=== PATIENT | female | born 1980 | race American Indian/Alaskan Native ===

== ENCOUNTER 2018-04-28 01:13 | Emergency (ER) | payer SELFPAY ==
[2018-04-28 01:51] LABS: Basophils % (Auto) 0.7 % (0.0-1.8); Eosinophils # (Auto) 0.2 K/mm3 (0.0-0.4); Eosinophils % (Auto) 4.5 % (0.0-4.3); Hematocrit 34.2 % (30.3-42.9); Lymphocytes # (Auto) 2.7 K/mm3 (1.2-5.4); Lymphocytes % (Auto) 51.4 % (13.4-35.0); Mean Corpuscular HGB Conc 32 % (30-34); Mean Corpuscular Volume 73 fl (79-97); Monocytes # (Auto) 0.3 K/mm3 (0.0-0.8); Monocytes % (Auto) 5.8 % (0.0-7.3); Platelet Count 247 K/mm3 (140-440); Red Blood Count 4.71 M/mm3 (3.65-5.03); Red Cell Distribution Width 16.1 % (13.2-15.2)
[2018-04-28 02:10] LABS: Alanine Aminotransferase 9 units/L (7-56); Albumin 4.2 g/dL (3.9-5); BUN/Creatinine Ratio 20; Blood Urea Nitrogen 12 mg/dL (7-17); Calcium 8.8 mg/dL (8.4-10.2); Hemolysis Index 7
--- NOTE | 2018-04-28 08:01 | Emergency Department Report ---
ED Abdominal Pain HPI - General Chief Complaint: Abdominal Pain Stated Complaint: N/V, ABD PAIN Time Seen by Provider: 04/28/18 08:00 Source: patient Mode of arrival: Ambulatory Limitations: No Limitations - History of Present Illness Initial Comments: 37-year-old female provides a history of umbilical hernia. She complains of upper and lower back pain. She has not been vomiting. She denies fever or chills. She was seen here on Monday and discharged for similar complaints. She did not have a urinalysis at that time. She did not have a reticulocyte count at that time. She tells me that she has sickle cell disease but does not have frequent crisis. She also states she is uninsured and has moved here from [place]. In any case she reports intermittent abdominal crampy discomfort. MD Complaint: abdominal pain -: week(s) Location: diffuse Radiation: none Migration to: other (first upper abdominal and then lower abdominal) Severity: mild Quality: cramping Consistency: intermittent Improves With: nothing Worsens With: nothing Associated Symptoms: denies other symptoms - Related Data Previous Rx's Medication Instructions Recorded Last Taken Type Ibuprofen [Motrin] 800 mg PO Q8HR PRN #30 tablet 04/24/18 Unknown Rx Meclizine [Antivert] 25 mg PO TID PRN #30 tablet 04/24/18 Unknown Rx Ondansetron [Zofran Odt] 4 mg PO Q8HR PRN #20 tab.rapdis 04/24/18 Unknown Rx traMADol [Ultram 50 MG tab] 50 mg PO Q6HR PRN #14 tablet 04/28/18 Unknown Rx Allergies Allergy/AdvReac Type Severity Reaction Status Date / Time Sulfa (Sulfonamide AdvReac Swelling Verified 04/24/18 01:11 Antibiotics) ED Review of Systems ROS: Stated complaint: N/V, ABD PAIN Other details as noted in HPI Constitutional: denies: chills, fever Eyes: denies: eye pain, eye discharge, vision change ENT: denies: ear pain, throat pain Respiratory: denies: cough, shortness of breath, wheezing Cardiovascular: denies: chest pain, palpitations Endocrine: no symptoms reported Gastrointestinal: as per HPI, abdominal pain. denies: nausea, diarrhea Genitourinary: denies: urgency, dysuria, discharge Musculoskeletal: denies: back pain, joint swelling, arthralgia Skin: denies: rash, lesions Neurological: denies: headache, weakness, paresthesias Psychiatric: denies: anxiety, depression Hematological/Lymphatic: denies: easy bleeding, easy bruising ED Past Medical Hx - Past Medical History Previous Medical History?: Yes Hx Sickle Cell Disease: Yes Hx Arthritis: Yes (All joints) Additional medical history: Chronic Back Pain, - Surgical History Past Surgical History?: Yes Additional Surgical History: Tonsillectomy, Adenoidectomy, - Social History Smoking Status: Current Every Day Smoker Substance Use Type: None - Medications Home Medications: Home Medications Medication Instructions Recorded Confirmed Last Taken Type Ibuprofen [Motrin] 800 mg PO Q8HR PRN #30 tablet 04/24/18 Unknown Rx Meclizine [Antivert] 25 mg PO TID PRN #30 tablet 04/24/18 Unknown Rx Ondansetron [Zofran Odt] 4 mg PO Q8HR PRN #20 tab.rapdis 04/24/18 Unknown Rx traMADol [Ultram 50 MG tab] 50 mg PO Q6HR PRN #14 tablet 04/28/18 Unknown Rx ED Physical Exam - General Limitations: No Limitations General appearance: alert, in no apparent distress - Head Head exam: Present: atraumatic, normocephalic - Eye Eye exam: Present: normal appearance. Absent: scleral icterus - ENT ENT exam: Present: mucous membranes moist - Neck Neck exam: Present: normal inspection - Respiratory Respiratory exam: Present: normal lung sounds bilaterally. Absent: respiratory distress - Cardiovascular Cardiovascular Exam: Present: regular rate, normal rhythm. Absent: systolic murmur, diastolic murmur, rubs, gallop - GI/Abdominal GI/Abdominal exam: Present: soft, normal bowel sounds, hernia (reducible and nontender). Absent: distended (obese), tenderness (no tenderness specifically in the periumbilical area or elsewhere.), guarding, rebound, rigid, organomegaly, mass, bruit, pulsatile mass - Extremities Exam Extremities exam: Present: normal inspection - Back Exam Back exam: Present: normal inspection - Neurological Exam Neurological exam: Present: alert, oriented X3, CN II-XII intact. Absent: motor sensory deficit - Psychiatric Psychiatric exam: Present: normal affect, normal mood - Skin Skin exam: Present: warm, dry, intact, normal color. Absent: rash ED Course Vital Signs 04/28/18 04/28/18 01:21 09:11 Temperature 98.1 F Pulse Rate 95 H 82 Respiratory 18 16 Rate Blood Pressure 140/81 Blood Pressure 130/82 [Left] O2 Sat by Pulse 100 98 Oximetry - Reevaluation(s) Reevaluation #1: On reexamination the patient's abdomen was totally nontender. She was asleep. She was resting comfortably and asymptomatic when awoken. She is appropriate for outpatient management. She will be referred to her primary care clinic and a surgeon. There is no indication of a strangulated hernia here. I have reviewed the CT report. 04/28/18 10:56 ED Medical Decision Making - Lab Data Result diagrams: 04/28/18 01:29 04/28/18 01:29 Laboratory Results - last 24 hr 04/28/18 04/28/18 01:29 01:29 WBC 5.2 RBC 4.71 Hgb 11.0 Hct 34.2 MCV 73 L MCH 23 L MCHC 32 RDW 16.1 H Plt Count 247 Lymph % (Auto) 51.4 H Falls % (Auto) 5.8 Eos % (Auto) 4.5 H Baso % (Auto) 0.7 Lymph # 2.7 Falls # 0.3 Eos # 0.2 Baso # 0.0 Seg Neutrophils % 37.6 L Seg Neutrophils # 2.0 Sodium 139 Potassium 3.8 Chloride 104.1 Carbon Dioxide 23 Anion Gap 16 BUN 12 Creatinine 0.6 L Estimated GFR > 60 BUN/Creatinine Ratio 20 Glucose 99 Calcium 8.8 Total Bilirubin 0.20 AST 11 ALT 9 Alkaline Phosphatase 50 Total Protein 6.1 L Albumin 4.2 Albumin/Globulin Ratio 2.2 - Radiology Data Radiology results: report reviewed Critical care attestation.: If time is entered above; I have spent that time in minutes in the direct care of this critically ill patient, excluding procedure time. ED Disposition Clinical Impression: Periumbilical hernia Abdominal pain Qualifiers: Abdominal location: generalized Qualified Code(s): R10.84 - Generalized abdominal pain Disposition: TO HOME OR SELFCARE Is pt being admited?: No Does the pt Need Aspirin: No Condition: Stable Instructions: Abdominal Pain (ED), Umbilical Hernia (ED) Additional Instructions: Return to the emergency department any acute change or worsening abdominal pain. Return if any fever or chills or difficulty with bowel movements. Follow-up with referrals. Rx if needed for pain. Prescriptions: traMADol [Ultram 50 MG tab] 50 mg PO Q6HR PRN #14 tablet PRN Reason: Pain Referrals: PRIMARY CAREMD [Primary Care Provider] - 3-5 Days CASANDRA KNOTT MD [Staff Physician] - 3-5 Days [facility] [Provider Group] - 2-3 Days Time of Disposition: 10:57
[2018-04-28] MEDS ORDERED: NACL 0.9% 1000 ML 1,000 ML IV ONE (08:25)
[2018-04-28] MEDS ORDERED: TORADOL IV ONE (08:26)
[2018-04-28] MEDS ORDERED: ZOFRAN IV ONE (08:26)
[2018-04-28 08:32] LABS: Bilirubin,Urine NEG (Negative); Blood,Urine NEG (Negative); Color,Urine Yellow (Yellow); HCG Qualitative,Urine Negative (Negative); Mucus,Urine FEW /HPF; Protein,Urine <15 mg/dL mg/dL (Negative); Urobilinogen,Urine < 2.0 mg/dL (<2.0)
[2018-04-28 09:12] VITALS: BP 130/82
--- NOTE | 2018-04-28 09:15 | Cat Scan Report ---
FINAL REPORT EXAM: CT ABDOMEN PELVIS WO CON HISTORY: abd pain generalized SS disease TECHNIQUE: CT of the abdomen and pelvis without IV contrast. Coronal and sagittal reconstructed imag ing provided. PRIORS: None currently available. FINDINGS: ABDOMEN: Partially imaged heart is within normal limits. No pericardial effusion. Some coronary artery disease . Calcified lymph nodes in the mediastinum and right hilar region are partially imaged. Calcified granuloma in the right lower lobe. Distended gallbladder. No wall thickening. Common bile duct does not appear prominent on CT. Liver: 21.6 cm. No distinct lesions. Stomach, spleen, pancreas, and adrenals are unremarkable. Kidneys: 7.2 x 4.1 mm stone upper right kidney. No hydronephrosis. No ureteral stones. Left kidney do es not demonstrate any nephroureteral stones. No hydronephrosis. IVC is unremarkable. No abdominal aortic aneurysm. No periaortic or retroperitoneal mass or adenopathy. Btfz-fj-yohpeypn stool in the colon. No wall thickening or inflammatory changes. Terminal ileum is unremarkable. Appendix is normal. Small bowel loops are unremarkable. No obstructive pattern. No air-fluid levels. Mesentery is unremarkable. No free air. No free fluid. Two small fat containing umbilical hernias. 5.1 cm fat containing supra umbilical hernia with a neck of 1.9 cm demonstrates some minimal stranding. PELVIS: Limited CT images of the uterus are unremarkable. Oval low-attenuation lesion in the right posterior pelvis measures 2.6 cm and probably represents a r ight ovary with ovarian cyst. Bladder: No wall thickening. No stones. Unremarkable. No pelvic mass or adenopathy. Inguinal regions are unremarkable. Bones: No suspicious osseous lesions on this limited examination of the skeleton. Metastatic disease better evaluated with bone scan. IMPRESSION: Distended gallbladder. No CT evidence for cholecystitis. Hepatomegaly. Right renal stone. No hydronephrosis. Umbilical and supraumbilical fat containing hernias. Mild stranding in the supraumbilical hernia. Str angulation is not entirely excluded. Please correlate for localized tenderness. Probable right ovary with ovarian cyst.
== END 2018-04-28 11:16 | disposition home or self-care (01) ==
LOC: ED 01:13
DX: K42.9 Umbilical hernia without obstruction or gangrene (principal); F17.200 Nicotine dependence, unspecified, uncomplicated; M19.90 Unspecified osteoarthritis, unspecified site; G89.29 Other chronic pain; D57.80 Other sickle-cell disorders without crisis; Z88.2 Allergy status to sulfonamides; Z90.89 Acquired absence of other organs
CPT/HCPCS: 36415; 74176; 80053; 81001; 81025; 85025; 85045; 96374; 96375; 99284; J1885; J2405; J7030

== ENCOUNTER 2018-07-10 14:12 | Emergency (ER) | payer OTHER ==
--- NOTE | 2018-07-10 14:43 | Emergency Department Report ---
Chief Complaint: Nausea/Vomiting/Diarrhea Stated Complaint: ABD PAIN/LOOSE STOOLS/FATIGUE Time Seen by Provider: 07/10/18 14:41 - HPI History of Present Illness: This is a 37 y.o. female that presents with abdominal pain and diarrhea x 3 days. - ROS Review of Systems: abdominal pain and diarrhea. - Exam Vital Signs: Vital Signs 07/10/18 14:41 Temperature 97.9 F Pulse Rate 96 H Respiratory 20 Rate Blood Pressure 156/102 O2 Sat by Pulse 100 Oximetry MSE screening note: Focused history and physical exam performed. Due to findings the following was ordered: Labs Fast track for further evaluation. ED Disposition for MSE Condition: Stable
[2018-07-10 15:31] LABS: Hematocrit 31.8 % (30.3-42.9); Hemoglobin 10.3 gm/dl (10.1-14.3); Mean Corpuscular HGB Conc 32 % (30-34); Mean Corpuscular Volume 72 fl (79-97); Platelet Count 333 K/mm3 (140-440); Red Blood Count 4.44 M/mm3 (3.65-5.03); Red Cell Distribution Width 15.1 % (13.2-15.2)
[2018-07-10] MEDS ORDERED: PEPCID IV ONE (15:47)
[2018-07-10] MEDS ORDERED: NACL 0.9% 1000 ML 1,000 ML IV ONE (15:47)
[2018-07-10] MEDS ORDERED: BENTYL IM ONE (15:47)
[2018-07-10 16:04] LABS: Alanine Aminotransferase 10 units/L (7-56); Albumin 4.2 g/dL (3.9-5); BUN/Creatinine Ratio 14; Blood Urea Nitrogen 10 mg/dL (7-17); Calcium 8.9 mg/dL (8.4-10.2); Hemolysis Index 7
[2018-07-10 16:12] LABS: Basophils % (Manual) 0 % (0.0-1.8); Total Cells Counted 100
[2018-07-10 16:13] LABS: Anisocytosis 1+; Hypochromasia 1+; Schistocytes Few
[2018-07-10 16:14] LABS: Ovalocytes 1+; Target Cells 1+; Tear Drop Cells Few
--- NOTE | 2018-07-10 16:27 | Emergency Department Report ---
<LUIS FELIPE MARIN - Last Filed: 07/10/18 16:20> ED Abdominal Pain HPI - General Chief Complaint: Nausea/Vomiting/Diarrhea Stated Complaint: ABD PAIN/LOOSE STOOLS/FATIGUE Time Seen by Provider: 07/10/18 14:41 Source: patient Mode of arrival: Ambulatory Limitations: No Limitations - History of Present Illness Initial Comments: Patient is a 37-year-old Female who is presenting with 3 days of epigastric discomfort with diarrhea. Patient states abdominal discomfort is crampy in nature. Patient states that she's had loose watery diarrhea that at some times uncontrollable. Patient struck taken Imodium [id number] with no relief. Patient leave work yesterday because on her way to work she had a bowel movement on herself and had to call out. The patient has some mild nausea but no diarrhea. Patient denies objective fevers however she has had intermittent chills for the past 2-3 days as well. Patient does have some mild dizziness with standing and fatigue. Severity scale (0 -10): 6 - Related Data Previous Rx's Medication Instructions Recorded Last Taken Type Ibuprofen [Motrin] 800 mg PO Q8HR PRN #30 tablet 04/24/18 Unknown Rx Meclizine [Antivert] 25 mg PO TID PRN #30 tablet 04/24/18 Unknown Rx Ondansetron [Zofran Odt] 4 mg PO Q8HR PRN #20 tab.rapdis 04/24/18 Unknown Rx traMADol [Ultram 50 MG tab] 50 mg PO Q6HR PRN #14 tablet 04/28/18 Unknown Rx Cyclobenzaprine [Flexeril] 10 mg PO TID PRN #30 tablet 05/19/18 Unknown Rx Menthol/Camphor [[place]offat 1 applicatio TP QID PRN #1 tube 05/19/18 Unknown Rx Ointment] Naproxen 500 mg PO BID PRN #30 tablet 05/19/18 Unknown Rx Nitrofurantoin [place]/M-Cryst 100 mg PO BID 7 Days #14 capsule 05/19/18 Unknown Rx [Macrobid CAP] Ondansetron [Zofran Odt] 4 mg PO Q8HR PRN #10 tab.rapdis 07/10/18 Unknown Rx Allergies Allergy/AdvReac Type Severity Reaction Status Date / Time Sulfa (Sulfonamide AdvReac Swelling Verified 04/24/18 01:11 Antibiotics) ED Review of Systems Comment: All other systems reviewed and negative ED Past Medical Hx - Past Medical History Previous Medical History?: Yes Hx Sickle Cell Disease: Yes Hx Arthritis: Yes (All joints) Additional medical history: Chronic Back Pain, - Surgical History Past Surgical History?: Yes Additional Surgical History: Tonsillectomy, Adenoidectomy, Hernia Repair - Social History Smoking Status: Current Every Day Smoker Substance Use Type: None - Medications Home Medications: Home Medications Medication Instructions Recorded Confirmed Last Taken Type Ibuprofen [Motrin] 800 mg PO Q8HR PRN #30 tablet 04/24/18 Unknown Rx Meclizine [Antivert] 25 mg PO TID PRN #30 tablet 04/24/18 Unknown Rx Ondansetron [Zofran Odt] 4 mg PO Q8HR PRN #20 tab.rapdis 04/24/18 Unknown Rx traMADol [Ultram 50 MG tab] 50 mg PO Q6HR PRN #14 tablet 04/28/18 Unknown Rx Cyclobenzaprine [Flexeril] 10 mg PO TID PRN #30 tablet 05/19/18 Unknown Rx Menthol/Camphor [[place] Moffat 1 applicatio TP QID PRN #1 tube 05/19/18 Unknown Rx Ointment] Naproxen 500 mg PO BID PRN #30 tablet 05/19/18 Unknown Rx Nitrofurantoin [place]/M-Cryst 100 mg PO BID 7 Days #14 capsule 05/19/18 Unknown Rx [Macrobid CAP] Ondansetron [Zofran Odt] 4 mg PO Q8HR PRN #10 tab.rapdis 07/10/18 Unknown Rx ED Physical Exam - General Limitations: No Limitations General appearance: alert, in no apparent distress - Head Head exam: Present: atraumatic, normocephalic - Eye Eye exam: Present: normal appearance - ENT ENT exam: Present: mucous membranes moist - Neck Neck exam: Present: normal inspection - Respiratory Respiratory exam: Present: normal lung sounds bilaterally. Absent: respiratory distress, wheezes, rales, rhonchi - Cardiovascular Cardiovascular Exam: Present: regular rate, normal rhythm. Absent: systolic murmur, diastolic murmur, rubs, gallop - GI/Abdominal GI/Abdominal exam: Present: soft, tenderness (epigastric and mid abd), normal bowel sounds. Absent: distended, guarding, rebound, rigid - Extremities Exam Extremities exam: Present: normal inspection - Back Exam Back exam: Present: normal inspection - Neurological Exam Neurological exam: Present: alert, oriented X3 - Psychiatric Psychiatric exam: Present: normal affect, normal mood - Skin Skin exam: Present: warm, dry, intact, normal color. Absent: rash ED Medical Decision Making - Lab Data Result diagrams: 07/10/18 15:03 07/10/18 15:03 Lab Results 07/10/18 07/10/18 07/10/18 Range/Units 15:03 15:03 15:03 WBC 5.1 (4.5-11.0) K/mm3 RBC 4.44 (3.65-5.03) M/mm3 Hgb 10.3 (10.1-14.3) gm/dl Hct 31.8 (30.3-42.9) % MCV 72 L (79-97) fl MCH 23 L (28-32) pg MCHC 32 (30-34) % RDW 15.1 (13.2-15.2) % Plt Count 333 (140-440) K/mm3 Add Manual Diff Complete Total Counted 100 Seg Neuts % (Manual) 49.0 (40.0-70.0) % Band Neutrophils % 0 % Lymphocytes % (Manual) 38.0 H (13.4-35.0) % Reactive Lymphs % (Man) 0 % Monocytes % (Manual) 7.0 (0.0-7.3) % Eosinophils % (Manual) 6.0 H (0.0-4.3) % Basophils % (Manual) 0 (0.0-1.8) % Metamyelocytes % 0 % Myelocytes % 0 % Promyelocytes % 0 % Blast Cells % 0 % Nucleated RBC % Not Reportable Seg Neutrophils # Man 2.5 (1.8-7.7) K/mm3 Band Neutrophils # 0.0 K/mm3 Lymphocytes # (Manual) 1.9 (1.2-5.4) K/mm3 Abs React Lymphs (Man) 0.0 K/mm3 Monocytes # (Manual) 0.4 (0.0-0.8) K/mm3 Eosinophils # (Manual) 0.3 (0.0-0.4) K/mm3 Basophils # (Manual) 0.0 (0.0-0.1) K/mm3 Metamyelocytes # 0.0 K/mm3 Myelocytes # 0.0 K/mm3 Promyelocytes # 0.0 K/mm3 Blast Cells # 0.0 K/mm3 WBC Morphology Not Reportable Hypersegmented Neuts Not Reportable Hyposegmented Neuts Not Reportable Hypogranular Neuts Not Reportable Smudge Cells Not Reportable Toxic Granulation Not Reportable Toxic Vacuolation Not Reportable Dohle Bodies Not Reportable Pelger-Huet Anomaly Not Reportable Kyra Rods Not Reportable Platelet Estimate Appears normal Clumped Platelets Not Reportable Plt Clumps, EDTA Not Reportable Large Platelets Not Reportable Giant Platelets Not Reportable Platelet Satelliting Not Reportable Plt Morphology Comment Not Reportable RBC Morphology Not Reportable Dimorphic RBCs Not Reportable Polychromasia Not Reportable Hypochromasia 1+ Poikilocytosis Not Reportable Anisocytosis 1+ Microcytosis Not Reportable Macrocytosis Not Reportable Spherocytes Not Reportable Pappenheimer Bodies Not Reportable Sickle Cells Not Reportable Target Cells 1+ Tear Drop Cells Few Ovalocytes 1+ Helmet Cells Not Reportable Mccarthy-Marmarth Bodies Not Reportable Lilly Rings Not Reportable Lisa Cells Not Reportable Bite Cells Not Reportable Crenated Cell Not Reportable Elliptocytes Few Acanthocytes (Spur) Not Reportable Rouleaux Not Reportable Hemoglobin C Crystals Not Reportable Schistocytes Few Malaria parasites Not Reportable Pablito Bodies Not Reportable Hem Pathologist Commnt No Sodium 140 (137-145) mmol/L Potassium 4.0 (3.6-5.0) mmol/L Chloride 103.3 (98-107) mmol/L Carbon Dioxide 25 (22-30) mmol/L Anion Gap 16 mmol/L BUN 10 (7-17) mg/dL Creatinine 0.7 (0.7-1.2) mg/dL Estimated GFR > 60 ml/min BUN/Creatinine Ratio 14 % Glucose 105 H (65-100) mg/dL Calcium 8.9 (8.4-10.2) mg/dL Total Bilirubin 0.20 (0.1-1.2) mg/dL AST 15 (5-40) units/L ALT 10 (7-56) units/L Alkaline Phosphatase 65 (35-129) units/L Total Protein 7.1 (6.3-8.2) g/dL Albumin 4.2 (3.9-5) g/dL Albumin/Globulin Ratio 1.4 % HCG, Qual Negative (Negative) ED Disposition Clinical Impression: Gastroenteritis Disposition: DC-01 TO HOME OR SELFCARE Condition: Stable Instructions: Gastroenteritis (ED) Additional Instructions: rest hydrate well with water advance diet as tolerated--start with bland foods motrin or tylenol for pain zofran for nausea follow up with pcp within 48 hours for recheck and to be sure you are doing better. this is 4rth ER visit this year- the PCP can follow you over time and be sure you are improving Prescriptions: Ondansetron [Zofran Odt] 4 mg PO Q8HR PRN #10 tab.rapdis PRN Reason: Vomiting Referrals: [facility] MD SAM [Primary Care Provider] - 3-5 Days [facility] [Outside] - 3-5 Days Forms: Work/School Release Form(ED) <LIZZIE ESPINOSA A - Last Filed: 07/10/18 18:47> ED Review of Systems ROS: Stated complaint: ABD PAIN/LOOSE STOOLS/FATIGUE Other details as noted in HPI ED Course Vital Signs 07/10/18 14:41 Temperature 97.9 F Pulse Rate 96 H Respiratory 20 Rate Blood Pressure 156/102 O2 Sat by Pulse 100 Oximetry ED Medical Decision Making - Lab Data Result diagrams: 07/10/18 15:03 07/10/18 15:03 - Radiology Data Radiology results: report reviewed no acute process see report - Medical Decision Making pt dc home VSS no n/v/d in ER on dc Labs 07/10/18 07/10/18 07/10/18 15:03 15:03 15:03 WBC 5.1 RBC 4.44 Hgb 10.3 Hct 31.8 MCV 72 L MCH 23 L MCHC 32 RDW 15.1 Plt Count 333 Add Manual Diff Complete Total Counted 100 Seg Neuts % (Manual) 49.0 Band Neutrophils % 0 Lymphocytes % (Manual) 38.0 H Reactive Lymphs % (Man) 0 Monocytes % (Manual) 7.0 Eosinophils % (Manual) 6.0 H Basophils % (Manual) 0 Metamyelocytes % 0 Myelocytes % 0 Promyelocytes % 0 Blast Cells % 0 Nucleated RBC % Not Reportable Seg Neutrophils # Man 2.5 Band Neutrophils # 0.0 Lymphocytes # (Manual) 1.9 Abs React Lymphs (Man) 0.0 Monocytes # (Manual) 0.4 Eosinophils # (Manual) 0.3 Basophils # (Manual) 0.0 Metamyelocytes # 0.0 Myelocytes # 0.0 Promyelocytes # 0.0 Blast Cells # 0.0 WBC Morphology Not Reportable Hypersegmented Neuts Not Reportable Hyposegmented Neuts Not Reportable Hypogranular Neuts Not Reportable Smudge Cells Not Reportable Toxic Granulation Not Reportable Toxic Vacuolation Not Reportable Dohle Bodies Not Reportable Pelger-Huet Anomaly Not Reportable Kyra Rods Not Reportable Platelet Estimate Appears normal Clumped Platelets Not Reportable Plt Clumps, EDTA Not Reportable Large Platelets Not Reportable Giant Platelets Not Reportable Platelet Satelliting Not Reportable Plt Morphology Comment Not Reportable RBC Morphology Not Reportable Dimorphic RBCs Not Reportable Polychromasia Not Reportable Hypochromasia 1+ Poikilocytosis Not Reportable Anisocytosis 1+ Microcytosis Not Reportable Macrocytosis Not Reportable Spherocytes Not Reportable Pappenheimer Bodies Not Reportable Sickle Cells Not Reportable Target Cells 1+ Tear Drop Cells Few Ovalocytes 1+ Helmet Cells Not Reportable Mcacrthy-Marmarth Bodies Not Reportable Lilly Rings Not Reportable [place] Cells Not Reportable Bite Cells Not Reportable Crenated Cell Not Reportable Elliptocytes Few Acanthocytes (Spur) Not Reportable Rouleaux Not Reportable Hemoglobin C Crystals Not Reportable Schistocytes Few Malaria parasites Not Reportable Pablito Bodies Not Reportable Hem Pathologist Commnt No Sodium 140 Potassium 4.0 Chloride 103.3 Carbon Dioxide 25 Anion Gap 16 BUN 10 Creatinine 0.7 Estimated GFR > 60 BUN/Creatinine Ratio 14 Glucose 105 H Calcium 8.9 Total Bilirubin 0.20 AST 15 ALT 10 Alkaline Phosphatase 65 Total Protein 7.1 Albumin 4.2 Albumin/Globulin Ratio 1.4 HCG, Qual Negative Vital Signs 07/10/18 14:41 Temperature 97.9 F Pulse Rate 96 H Respiratory 20 Rate Blood Pressure 156/102 O2 Sat by Pulse 100 Oximetry Critical care attestation.: If time is entered above; I have spent that time in minutes in the direct care of this critically ill patient, excluding procedure time. ED Disposition Is pt being admited?: No Does the pt Need Aspirin: No Time of Disposition: 18:42
--- NOTE | 2018-07-10 18:37 | Cat Scan Report ---
PROCEDURE: CT ABDOMEN PELVIS WO CON TECHNIQUE: Computerized axial tomography of the abdomen and pelvis was performed without intravenous contrast. This study is performed without intravascular contrast material and its sensitivity for ab dominal and pelvic pathology, including neoplasms, inflammation, abscess, free fluid, thrombosis, art erial dissection and infarction, is reduced compared with a contrast enhanced study. HISTORY: abd pain with large amt of diarrhea COMPARISONS: CT scan abdomen and pelvis 04/28/2018 . FINDINGS: Lower Lung tinajero: Several calcified lymph nodes project over the right hilum consistent with prior granulomatous disease. Calcified granuloma seen anteriorly in the right lower lobe. Upper Abdomen: The unenhanced images of the liver, the gallbladder, the adrenal glands, the pancreas are unremarkable. A few calcified granulomas are seen in the spleen which is otherwise unremarkable. Kidneys, Ureters and Urinary bladder: Nonobstructing 8 mm x 4 mm calculus visualized in the upper th ird of the right kidney. No other renal calculi are seen in the right or left. There is no hydronephr osis or renal mass. The ureters and urinary bladder show no focal abnormality Retroperitoneum: Abdominal aorta appears normal. Nonspecific subcentimeter lymph nodes are seen in the retroperitoneum. No pathologically enlarged ly mph nodes are identified. Bowel: No focal bowel loop abnormalities are seen. No evidence of bowel obstruction ascites or free intraperitoneal gas. Normal-appearing appendix visualized right lower quadrant. Small to moderate-siz ed anterior abdominal wall hernia present containing adipose tissue. This is located superior to the umbilicus approximately 2.9 cm.. No herniated loops of bowel are seen. Reproductive organs: The uterus is deviated to the left of midline otherwise unremarkable. No abnorm al adnexal masses are seen. Other: No acute bone abnormalities are visualized. IMPRESSION: No acute abnormality is seen. Prior granulomatous disease. Nonobstructing calculus visualized upper third right kidney. No evidence of hydronephrosis. Anterior abdominal wall hernia visualized as described above. This document is electronically signed by Chaitanya Sanford MD., July 10 2018 06:34:52 PM ET
[2018-07-10 18:47] VITALS: BP 140/86
== END 2018-07-10 18:50 | disposition home or self-care (01) ==
LOC: ED 14:12
DX: K52.9 Noninfective gastroenteritis and colitis, unspecified (principal); M19.90 Unspecified osteoarthritis, unspecified site; D57.1 Sickle-cell disease without crisis; G89.29 Other chronic pain; F17.200 Nicotine dependence, unspecified, uncomplicated; Z90.89 Acquired absence of other organs; Z88.2 Allergy status to sulfonamides
CPT/HCPCS: 36415; 74176; 80053; 84703; 85007; 85025; 96361; 96372; 96374; 99284; J0500; J7030